=== PATIENT | male | born 1960 | race Caucasian/White ===

== ENCOUNTER → 2017-02-18 | Outpatient (CLI) | payer MEDICARE ==
[~2017-02-18] MED LIST: ALLO300T PO; AMLO5TAB2 PO; BUTA-177 PO; COLC0.6T37 PO; DEXA2TAB PO; ERGO500017 PO; GABA600T2 PO; GEMF600T3 PO; LISI30TA4 PO; MECL25TA4 PO; METH500T7 PO; METH750T87 PO; ONDA4TAB7 PO; OXYC-302 PO; OXYC5TAB3 PO; PRED20TA PO; PROP40TA PO; SULF1TAB24 PO; TRAM50TA2 PO; TRIA15CR3 TD
[2017-02-18 12:13] LABS: ASPARTATE AMINO TRANSFERASE 38 U/L (15-37); BLOOD UREA NITROGEN 10 mg/dL (7-18)
[2017-02-19 14:06] LABS: PSA SERIAL MONITOR 1.8 ng/mL (0.0-4.0)
== END | disposition home or self-care (01) ==
LOC: LAB 11:20
PROVIDERS: ATTEND Internal Medicine
DX: I10 Essential (primary) hypertension (principal); D75.1 Secondary polycythemia; G40.909 Epilepsy, unspecified, not intractable, without status epilepticus; G43.909 Migraine, unspecified, not intractable, without status migrainosus; M10.9 Gout, unspecified
CPT/HCPCS: 36415; 80053; 84153; 84550; 85025; G0103

== ENCOUNTER 2017-10-14 19:33 | Inpatient (IN) | payer MEDICARE ==
[~2017-10-14] VITALS: Ht 175.3 cm; Wt 91.4 kg
[2017-10-14 20:14] LABS: BASOPHILS # (AUTO) 0.05 x10^3/uL (0-0.1); BASOPHILS % (AUTO) 0 % (0-1); EOSINOPHILS # (AUTO) 0.47 x10^3/uL (0-0.4); EOSINOPHILS % (AUTO) 4 % (1-7); LYMPHOCYTES # (AUTO) 1.68 x10^3/uL (1-3.4); LYMPHOCYTES % (AUTO) 13 % (22-44); MD NO; MEAN CORPUSCULAR HEMOGLOBIN 33.5 pg (27.5-34.5); MEAN CORPUSCULAR HGB CONC 34.4 g/dL (33.2-36.2); MEAN CORPUSCULAR VOLUME 97.3 fL (81-97); MEAN PLATELET VOLUME 7.3 fL (7.4-10.4); MONOCYTES # (AUTO) 0.87 x10^3/uL (0.2-0.8); MONOCYTES % (AUTO) 7 % (2-9); NEUTROPHILS # (AUTO) 9.53 x10^3/uL (1.8-6.8); NEUTROPHILS % (AUTO) 76 % (42-75); PLATELET COUNT 326 x10^3/uL (130-400); RED BLOOD COUNT 5.41 x10^6/uL (4.38-5.82); RED CELL DISTRIBUTION WIDTH 12.9 % (9.4-14.8)
[2017-10-14] MEDS ORDERED: ACETAMINOPHEN 325 MG TABLET PO ONE (21:00)
[2017-10-14] MEDS ORDERED: SODIUM CHLORIDE 0.9% 1,000ML IVBOLUS ONE (21:00)
[2017-10-14] MEDS ORDERED: SODIUM CHLORIDE FLUSH 10ML SYR IVF ONE (21:00)
[2017-10-14 21:16] LABS: HCT (SEDRATE) 62.5 % (39.2-51.8)
[2017-10-14 21:30] LABS: ALANINE AMINOTRANSFERASE 18 U/L (12-78); ALBUMIN 3.1 g/dL (3.4-5.0); ANION GAP 8 mmol/L (5-15); CALCIUM 8.8 mg/dL (8.5-10.1); CHLORIDE 102 mmol/L (98-107); CREATININE 1.21 mg/dL (0.7-1.3)
[2017-10-14 21:32] LABS: ALKALINE PHOSPHATASE 51 U/L (45-117); BILIRUBIN,TOTAL 1.2 mg/dL (0.2-1.0); TOTAL PROTEIN 7.6 g/dL (6.4-8.2); TROPONIN I < 0.015 ng/mL (0.000-0.045)
[2017-10-14] MEDS ORDERED: ACETAMINOPHEN 325 MG TABLET ONE (21:45)
[2017-10-14] MEDS ORDERED: AZITHROMYCIN 500 MG in SODIUM CHLORIDE 0.9% 250 ML IVPB ONE (22:30)
[2017-10-14] MEDS ORDERED: POTASSIUM CHLORIDE 20 MEQ TAB.ER.PRT PO ONE (22:30)
[2017-10-14] MEDS ORDERED: CEFTRIAXONE PMX 1GM/50ML 50 ML IVPB ONE (22:30)
[2017-10-14] MEDS ORDERED: CEFTRIAXONE PMX 1GM/50ML 50 ML ONE (22:46)
[2017-10-14] MEDS ORDERED: POTASSIUM CHLORIDE 20 MEQ TAB.ER.PRT ONE (22:46)
[2017-10-14] MEDS ORDERED: OMNIPAQUE 350 MG/ML, 100ML BOTTLE ONE (23:35)
[2017-10-15] MEDS ORDERED: hydrALAzine 20 MG/ML, 1ML IVPush PRN (01:30)
[2017-10-15] MEDS ORDERED: HYDROcodone/APAP 5/325 TABLET PO PRN (01:30)
[2017-10-15] MEDS: ENOXAPARIN 40 MG/0.4 ML SQ SCH (01:30)
[2017-10-15] MEDS ORDERED: DOCUSATE 100 MG CAPSULE PO PRN (01:30)
[2017-10-15] MEDS ORDERED: ONDANSETRON ODT 4 MG PO PRN (01:30)
[2017-10-15 03:10] LABS: TROPONIN I < 0.015 ng/mL (0.000-0.045)
[2017-10-15 09:28] VITALS: BP 126/85
[2017-10-15] MEDS ORDERED: FLU VACC QS2017-18 (36MOS+) UP/PF 0.5 ML IM-VACC ONE (10:00)
[2017-10-15] MEDS ORDERED: PNEUMOCOCCAL 23 VACCINE IM-VACC ONE (10:00)
[2017-10-15 10:17] LABS: TROPONIN I < 0.015 ng/mL (0.000-0.045)
[2017-10-15 13:14] LABS: AMPHETAMINE SCREEN, URINE Negative (Negative); BARBITURATE SCREEN, URINE Negative (Negative); BENZODIAZEPINE SCREEN, URINE Negative (Negative); CANNABINOID SCREEN, URINE Negative (Negative); COCAINE SCREEN, URINE Negative (Negative); METHADONE SCREEN, URINE Negative (Negative); OPIATE SCREEN, URINE Positive (Negative)
[2017-10-15 14:54] VITALS: BP 126/83
[2017-10-15 19:30] VITALS: BP 122/79
[2017-10-15] MEDS ORDERED: CEFTRIAXONE 1,000 MG in DEXTROSE 5% 50 ML IVPB SCH (22:00)
[2017-10-15] MEDS ORDERED: AZITHROMYCIN 500 MG in SODIUM CHLORIDE 0.9% 250 ML IV SCH (22:30)
[2017-10-16 00:27] VITALS: BP 129/79
[2017-10-16] MEDS: ENOXAPARIN 40 MG/0.4 ML SQ SCH (06:00)
[2017-10-16 06:25] LABS: BASOPHILS # (AUTO) 0.04 x10^3/uL (0-0.1); BASOPHILS % (AUTO) 0 % (0-1); EOSINOPHILS # (AUTO) 0.02 x10^3/uL (0-0.4); EOSINOPHILS % (AUTO) 0 % (1-7); LYMPHOCYTES # (AUTO) 1.68 x10^3/uL (1-3.4); LYMPHOCYTES % (AUTO) 18 % (22-44); MD NO; MEAN CORPUSCULAR HEMOGLOBIN 33.6 pg (27.5-34.5); MEAN CORPUSCULAR HGB CONC 34.6 g/dL (33.2-36.2); MEAN CORPUSCULAR VOLUME 97.3 fL (81-97); MEAN PLATELET VOLUME 7.1 fL (7.4-10.4); MONOCYTES # (AUTO) 0.62 x10^3/uL (0.2-0.8); MONOCYTES % (AUTO) 7 % (2-9); NEUTROPHILS # (AUTO) 7.11 x10^3/uL (1.8-6.8); NEUTROPHILS % (AUTO) 75 % (42-75); PLATELET COUNT 295 x10^3/uL (130-400); RED BLOOD COUNT 4.44 x10^6/uL (4.38-5.82); RED CELL DISTRIBUTION WIDTH 13.1 % (9.4-14.8)
[2017-10-16 06:31] LABS: ANION GAP 10 mmol/L (5-15); CALCIUM 8.1 mg/dL (8.5-10.1); CHLORIDE 109 mmol/L (98-107); CREATININE 1.11 mg/dL (0.7-1.3)
[2017-10-16] MEDS ORDERED: AMOX1TAB64 PO (07:52)
[2017-10-16 08:06] VITALS: BP 128/82
== END 2017-10-16 11:30 | disposition home or self-care (01) | DRG 872 ==
LOC: ED 23:40 → EDIP 10-15 01:10 → 5SO 10-15 09:24 → 3NW 10-15 14:59 → DCLOUNGE 10-16 11:15
PROVIDERS: ADMIT Hospitalist; ATTEND Hospitalist
DX: A41.9 Sepsis, unspecified organism (principal); I11.9 Hypertensive heart disease without heart failure; I69.354 Hemiplegia and hemiparesis following cerebral infarction affecting left non-dominant side; L03.113 Cellulitis of right upper limb; E87.6 Hypokalemia; M10.9 Gout, unspecified; J20.9 Acute bronchitis, unspecified; J45.909 Unspecified asthma, uncomplicated; M19.90 Unspecified osteoarthritis, unspecified site; M70.22 Olecranon bursitis, left elbow; R65.20 Severe sepsis without septic shock; W57.XXXA Bitten or stung by nonvenomous insect and other nonvenomous arthropods, initial encounter; Y93.89 Activity, other specified; Y92.89 Other specified places as the place of occurrence of the external cause; Z82.49 Family history of ischemic heart disease and other diseases of the circulatory system; Z87.11 Personal history of peptic ulcer disease; Z86.14 Personal history of Methicillin resistant Staphylococcus aureus infection; Y99.8 Other external cause status; Z86.19 Personal history of other infectious and parasitic diseases; Z90.49 Acquired absence of other specified parts of digestive tract; Z79.899 Other long term (current) drug therapy; Z79.1 Long term (current) use of non-steroidal anti-inflammatories (NSAID)
CPT/HCPCS: 36415; 71045; 71275; 80048; 80053; 80307; 83605; 84145; 84484; 84550; 85025; 85651; 87040; 90686; 90732; 93005; 96365; 96366; 96368; 96372; J0456; J0696; J1650; Q9967; J7030; J7050; J7512

== ENCOUNTER → 2017-11-13 | Outpatient (CLI) | payer MEDICARE ==
[~2017-11-13] MED LIST changes: +AMOX1TAB64 PO
[2017-11-13 10:11] LABS: BASOPHILS # (AUTO) 0.03 x10^3/uL (0-0.1); BASOPHILS % (AUTO) 1 % (0-1); EOSINOPHILS # (AUTO) 0.25 x10^3/uL (0-0.4); EOSINOPHILS % (AUTO) 5 % (1-7); LYMPHOCYTES # (AUTO) 1.61 x10^3/uL (1-3.4); LYMPHOCYTES % (AUTO) 29 % (22-44); MD NO; MEAN CORPUSCULAR HEMOGLOBIN 32.9 pg (27.5-34.5); MEAN CORPUSCULAR HGB CONC 34.7 g/dL (33.2-36.2); MEAN PLATELET VOLUME 7.1 fL (7.4-10.4); MONOCYTES # (AUTO) 0.51 x10^3/uL (0.2-0.8); MONOCYTES % (AUTO) 9 % (2-9); NEUTROPHILS # (AUTO) 3.13 x10^3/uL (1.8-6.8); NEUTROPHILS % (AUTO) 57 % (42-75); PLATELET COUNT 222 x10^3/uL (130-400); RED BLOOD COUNT 5.39 x10^6/uL (4.38-5.82); RED CELL DISTRIBUTION WIDTH 13.7 % (9.4-14.8)
[2017-11-13 10:21] LABS: MICROSCOPIC AUTO
[2017-11-13 10:23] LABS: ALANINE AMINOTRANSFERASE 37 U/L (12-78); ALBUMIN 3.7 g/dL (3.4-5.0); ANION GAP 6 mmol/L (5-15); CALCIUM 8.9 mg/dL (8.5-10.1); CHLORIDE 107 mmol/L (98-107); CREATININE 1.15 mg/dL (0.7-1.3)
[2017-11-13 10:26] LABS: ALKALINE PHOSPHATASE 47 U/L (45-117); BILIRUBIN,TOTAL 1.1 mg/dL (0.2-1.0); CHOL/HDL RATIO 5.3; CHOLESTEROL, TOTAL 181 mg/dL (140-239); HDL CHOL % 19 % (26-37); HDL CHOLESTEROL (DIRECT) 34 mg/dL (40-60); LDL CHOLESTEROL,CALCULATED 90 mg/dL (54-169); LDL/HDL RATIO 2.6 (0.5-3.0); TOTAL PROTEIN 7.5 g/dL (6.4-8.2); TRIGLYCERIDES 284 mg/dL (50-200); VLDL CHOLESTEROL 57 mg/dL (0-25)
== END ==
LOC: LAB 09:53
PROVIDERS: ATTEND Internal Medicine
DX: I10 Essential (primary) hypertension (principal); G40.909 Epilepsy, unspecified, not intractable, without status epilepticus; G43.909 Migraine, unspecified, not intractable, without status migrainosus; J30.2 Other seasonal allergic rhinitis; D75.1 Secondary polycythemia
CPT/HCPCS: 36415; 80053; 80061; 81001; 84550; 85025; 86803

== ENCOUNTER → 2018-05-15 | Outpatient (CLI) | payer MEDICARE ==
[~2018-05-15] MED LIST changes: -AMLO5TAB2 PO; +AMLO5TAB7 PO; +AMOX1TAB12 PO; +ASPI-650 PO; +ATOR40TA78 PO; -GEMF600T3 PO; +GEMF600T4 PO; +HEPA50002 SQ; +LISI-167 PO
[2018-05-15 10:26] LABS: ALANINE AMINOTRANSFERASE 39 U/L (12-78); ALBUMIN 3.7 g/dL (3.4-5.0); ANION GAP 8 mmol/L (5-15); CALCIUM 9.3 mg/dL (8.5-10.1); CHLORIDE 103 mmol/L (98-107)
[2018-05-15 10:28] LABS: ALKALINE PHOSPHATASE 47 U/L (45-117); BILIRUBIN,TOTAL 2.5 mg/dL (0.2-1.0); CHOL/HDL RATIO 4.2; CHOLESTEROL, TOTAL 148 mg/dL (140-239); CREATININE 1.29 mg/dL (0.7-1.3); HDL CHOL % 24 % (26-37); HDL CHOLESTEROL (DIRECT) 35 mg/dL (40-60); LDL CHOLESTEROL,CALCULATED 56 mg/dL (54-169); LDL/HDL RATIO 1.6 (0.5-3.0); TOTAL PROTEIN 7.8 g/dL (6.4-8.2); TRIGLYCERIDES 284 mg/dL (50-200); VLDL CHOLESTEROL 57 mg/dL (0-25)
[2018-05-15 10:32] LABS: HEMOGLOBIN A1C 5.3 % (4.2-6.3)
== END | disposition home or self-care (01) ==
LOC: LAB 09:54
PROVIDERS: ATTEND Internal Medicine
DX: Z12.5 Encounter for screening for malignant neoplasm of prostate (principal); I10 Essential (primary) hypertension; E78.2 Mixed hyperlipidemia; M10.9 Gout, unspecified; G43.909 Migraine, unspecified, not intractable, without status migrainosus; R73.01 Impaired fasting glucose
CPT/HCPCS: 36415; 80053; 80061; 83036; 84550; G0103; 84153

== ENCOUNTER 2018-09-06 12:12 | Inpatient (IN) | payer MEDICARE ==
[~2018-09-06] VITALS: Ht 172.7 cm; Wt 89.4 kg
[~2018-09-06 12:12] MED LIST changes: +AMLO-150 PO; -AMLO5TAB7 PO; -GABA600T2 PO; +GABA600T7 PO; -GEMF600T4 PO; +GEMF600T8 PO
[2018-09-06] MEDS ORDERED: MORPHINE SULFATE 4 MG/ML, 1ML ONE ×2 (12:42→13:48)
[2018-09-06 12:55] LABS: BASOPHILS # (AUTO) 0.07 x10^3/uL (0-0.1); BASOPHILS % (AUTO) 1 % (0-1); EOSINOPHILS # (AUTO) 0.12 x10^3/uL (0-0.4); EOSINOPHILS % (AUTO) 1 % (1-7); LYMPHOCYTES # (AUTO) 1.49 x10^3/uL (1-3.4); LYMPHOCYTES % (AUTO) 16 % (22-44); MD NO; MEAN CORPUSCULAR HEMOGLOBIN 34.2 pg (27.5-34.5); MEAN CORPUSCULAR HGB CONC 34.7 g/dL (33.2-36.2); MEAN CORPUSCULAR VOLUME 98.5 fL (81-97); MEAN PLATELET VOLUME 7.4 fL (7.4-10.4); MONOCYTES % (AUTO) 10 % (2-9); NEUTROPHILS # (AUTO) 6.88 x10^3/uL (1.8-6.8); NEUTROPHILS % (AUTO) 73 % (42-75); PLATELET COUNT 301 x10^3/uL (130-400); RED BLOOD COUNT 5.08 x10^6/uL (4.38-5.82); RED CELL DISTRIBUTION WIDTH 13.2 % (9.4-14.8)
[2018-09-06] MEDS ORDERED: SODIUM CHLORIDE FLUSH 10ML SYR IVF ONE (13:00)
[2018-09-06] MEDS: MORPHINE SULFATE 4 MG/ML, 1ML IVPush PRN ×2 (13:00→13:51)
[2018-09-06 13:03] LABS: INTERNATIONAL NORMALIZED RATIO 1.04 (0.93-1.1)
[2018-09-06 13:04] LABS: ALANINE AMINOTRANSFERASE 24 U/L (12-78); ALBUMIN 3.3 g/dL (3.4-5.0); ANION GAP 10 mmol/L (5-15); CALCIUM 9.6 mg/dL (8.5-10.1); CHLORIDE 102 mmol/L (98-107); CREATININE 1.37 mg/dL (0.7-1.3)
[2018-09-06 13:07] LABS: ALKALINE PHOSPHATASE 46 U/L (45-117); TOTAL PROTEIN 7.8 g/dL (6.4-8.2)
--- NOTE | 2018-09-06 13:21 | NUR ---
FIRST CONTACT WITH PT. PT C/O LEFT FOOT PAIN/SWELLING/DISCOLORATION X 6DAYS. NO TRAUMA NOTED ON LEFT FOOT. PT AOX4. RESPS EVEN AND UNLABORED. PT DENIES N/V/D AT THIS TIME. PT'S FAMILY AT BEDSIDE. BILATERAL DORSALIS PEDAL PULSE +2. BP/SPO2 MONITORS IN PLACE. CALL LIGHT WITHIN REACH.
--- NOTE | 2018-09-06 13:45 | NUR ---
pt's pain level is the same and rate 7/10 at this time. [employer] law notified.
--- NOTE | 2018-09-06 13:53 | NUR ---
pt medicated per emar for pain. pt tolerated well. pt aox4. resps even and unlabored.
[2018-09-06] MEDS ORDERED: MORPHINE SULFATE 4 MG/ML, 1ML IVPush PRN (14:00)
[2018-09-06 14:15] LABS: HCT (SEDRATE) 50.1 % (39.2-51.8)
[2018-09-06] MEDS ORDERED: VANCOMYCIN 1,900 MG in SODIUM CHLORIDE 0.9% 250 ML IV ONE (14:30)
[2018-09-06] MEDS ORDERED: VANCOMYCIN PER PHARMACY MC PRN (14:30)
--- NOTE | 2018-09-06 14:51 | NUR ---
REPORT GIVEN TO RECEIVING RN CHRISTY. DAMIAN NOT RECEIVED YET FROM PHARMACY, BLOOD CX X 2 TO BE DONE BEFORE RECEIVING ABX. RECEIVING RN AWARE. PT AWAITING TRANSPORT TO ROOM 457
--- NOTE | 2018-09-06 14:52 | NUR ---
pt reports pain level 5/10 at this time. pt a&o, resps even and unlabored. pt updated with POC.
--- NOTE | 2018-09-06 15:03 | NUR ---
vanco gtt started after blood cx drawn x 2.
[2018-09-06 15:31] VITALS: BP 117/79
[2018-09-06] MEDS ORDERED: ONDANSETRON 2MG/ML, 2ML IVPush PRN (16:00)
[2018-09-06] MEDS ORDERED: morphine SULFATE 10 MG/ML, 1ML IVPush PRN (16:00)
[2018-09-06] MEDS ORDERED: ACETAMINOPHEN 325 MG TABLET PO PRN (16:00)
[2018-09-06] MEDS ORDERED: hydrALAzine 20 MG/ML, 1ML IVPush PRN (16:00)
[2018-09-06] MEDS ORDERED: TEMAZEPAM 15 MG CAPSULE PO PRN (16:00)
[2018-09-06] MEDS: HYDROcodone/APAP 5/325 TABLET PO PRN (16:37)
[2018-09-06] MEDS: CEFTAROLINE 600 MG in SODIUM CHLORIDE 0.9% 100 ML IV SCH (17:23)
[2018-09-06] MEDS: LACTATED RINGERS 1,000 ML IV SCH (17:23)
[2018-09-06 17:42] LABS: THYROID STIMULATING HORMONE 1.63 mIU/L (0.358-3.740)
[2018-09-06 17:44] LABS: HEMOGLOBIN A1C 5.2 % (4.2-6.3)
[2018-09-06 20:08] VITALS: BP 119/77
[2018-09-07 00:51] VITALS: BP 156/94
[2018-09-07] MEDS: HYDROcodone/APAP 5/325 TABLET PO PRN ×4 (03:27→21:11)
[2018-09-07] MEDS: CEFTAROLINE 600 MG in SODIUM CHLORIDE 0.9% 100 ML IV SCH ×2 (03:27→15:42)
[2018-09-07 05:36] LABS: BASOPHILS # (AUTO) 0.03 x10^3/uL (0-0.1); BASOPHILS % (AUTO) 0 % (0-1); EOSINOPHILS # (AUTO) 0.19 x10^3/uL (0-0.4); EOSINOPHILS % (AUTO) 2 % (1-7); LYMPHOCYTES # (AUTO) 1.24 x10^3/uL (1-3.4); LYMPHOCYTES % (AUTO) 14 % (22-44); MD NO; MEAN CORPUSCULAR HEMOGLOBIN 34.3 pg (27.5-34.5); MEAN CORPUSCULAR HGB CONC 34.8 g/dL (33.2-36.2); MEAN CORPUSCULAR VOLUME 98.7 fL (81-97); MEAN PLATELET VOLUME 7.6 fL (7.4-10.4); MONOCYTES # (AUTO) 0.89 x10^3/uL (0.2-0.8); MONOCYTES % (AUTO) 10 % (2-9); NEUTROPHILS # (AUTO) 6.45 x10^3/uL (1.8-6.8); NEUTROPHILS % (AUTO) 73 % (42-75); PLATELET COUNT 282 x10^3/uL (130-400); RED BLOOD COUNT 4.44 x10^6/uL (4.38-5.82)
[2018-09-07 05:42] LABS: ALBUMIN 2.7 g/dL (3.4-5.0); CHLORIDE 102 mmol/L (98-107)
[2018-09-07 05:57] LABS: ALANINE AMINOTRANSFERASE 20 U/L (12-78); ALKALINE PHOSPHATASE 36 U/L (45-117); ANION GAP 11 mmol/L (5-15); BILIRUBIN,TOTAL 1.8 mg/dL (0.2-1.0); CALCIUM 8.6 mg/dL (8.5-10.1); CHOL/HDL RATIO 5.3; CHOLESTEROL, TOTAL 143 mg/dL (140-239); HDL CHOL % 19 % (26-37); HDL CHOLESTEROL (DIRECT) 27 mg/dL (40-60); LDL CHOLESTEROL,CALCULATED 86 mg/dL (54-169); LDL/HDL RATIO 3.2 (0.5-3.0); TOTAL PROTEIN 6.5 g/dL (6.4-8.2); TRIGLYCERIDES 148 mg/dL (50-200); VLDL CHOLESTEROL 30 mg/dL (0-25)
[2018-09-07] MEDS: LACTATED RINGERS 1,000 ML IV SCH (08:18)
[2018-09-07] MEDS: ALLOPURINOL 300 MG TABLET PO SCH (08:18)
[2018-09-07] MEDS: ENOXAPARIN 40 MG/0.4 ML SQ SCH (08:18)
[2018-09-07 08:30] VITALS: BP 154/75
[2018-09-07 13:45] VITALS: BP 150/75
[2018-09-07] MEDS ORDERED: POTASSIUM CHLORIDE 20 MEQ TAB.ER.PRT PO ONE (15:30)
[2018-09-07 18:35] VITALS: BP 156/95
[2018-09-07] MEDS: SIMVASTATIN 20 MG TABLET PO SCH (21:00)
[2018-09-08] MEDS: HYDROcodone/APAP 5/325 TABLET PO PRN ×5 (01:08→21:48)
[2018-09-08 01:18] VITALS: BP 150/84
[2018-09-08] MEDS: CEFTAROLINE 600 MG in SODIUM CHLORIDE 0.9% 100 ML IV SCH ×2 (03:30→17:00)
[2018-09-08 05:47] LABS: ANION GAP 6 mmol/L (5-15); CALCIUM 8.9 mg/dL (8.5-10.1); CHLORIDE 104 mmol/L (98-107); CREATININE 1.05 mg/dL (0.7-1.3)
[2018-09-08 07:20] VITALS: BP 136/58
[2018-09-08] MEDS: ALLOPURINOL 300 MG TABLET PO SCH (08:10)
[2018-09-08] MEDS: ENOXAPARIN 40 MG/0.4 ML SQ SCH (08:10)
[2018-09-08 13:40] VITALS: BP 112/81
[2018-09-08] MEDS ORDERED: LIDOCAINE-MPF 1%, 5ML ONE (15:25)
[2018-09-08 18:54] VITALS: BP 115/77
[2018-09-08] MEDS: SIMVASTATIN 20 MG TABLET PO SCH (21:48)
[2018-09-09 03:08] VITALS: BP 138/83
[2018-09-09] MEDS: CEFTAROLINE 600 MG in SODIUM CHLORIDE 0.9% 100 ML IV SCH ×2 (03:37→15:59)
[2018-09-09 06:41] VITALS: BP 125/90
[2018-09-09] MEDS: ENOXAPARIN 40 MG/0.4 ML SQ SCH (08:47)
[2018-09-09] MEDS: ALLOPURINOL 300 MG TABLET PO SCH (08:48)
[2018-09-09 13:14] VITALS: BP 144/81
[2018-09-09] MEDS: HYDROcodone/APAP 5/325 TABLET PO PRN ×2 (15:08→19:35)
[2018-09-09] MEDS: INDOMETHACIN 50 MG CAPSULE PO SCH ×2 (17:15→20:03)
[2018-09-09 18:50] VITALS: BP 122/86
[2018-09-09] MEDS: SIMVASTATIN 20 MG TABLET PO SCH (20:04)
[2018-09-10 02:56] VITALS: BP 114/81
[2018-09-10] MEDS: CEFTAROLINE 600 MG in SODIUM CHLORIDE 0.9% 100 ML IV SCH ×2 (03:49→16:14)
[2018-09-10 05:39] LABS: HCT (SEDRATE) 40.8 % (39.2-51.8)
[2018-09-10 05:41] LABS: BASOPHILS # (AUTO) 0.02 x10^3/uL (0-0.1); BASOPHILS % (AUTO) 0 % (0-1); EOSINOPHILS # (AUTO) 0.19 x10^3/uL (0-0.4); EOSINOPHILS % (AUTO) 3 % (1-7); LYMPHOCYTES # (AUTO) 1.09 x10^3/uL (1-3.4); LYMPHOCYTES % (AUTO) 19 % (22-44); MD NO; MEAN CORPUSCULAR HEMOGLOBIN 33.7 pg (27.5-34.5); MEAN CORPUSCULAR HGB CONC 34.7 g/dL (33.2-36.2); MEAN CORPUSCULAR VOLUME 97.2 fL (81-97); MEAN PLATELET VOLUME 7.3 fL (7.4-10.4); MONOCYTES # (AUTO) 0.65 x10^3/uL (0.2-0.8); MONOCYTES % (AUTO) 11 % (2-9); NEUTROPHILS # (AUTO) 3.76 x10^3/uL (1.8-6.8); NEUTROPHILS % (AUTO) 66 % (42-75); PLATELET COUNT 321 x10^3/uL (130-400); RED BLOOD COUNT 4.21 x10^6/uL (4.38-5.82); RED CELL DISTRIBUTION WIDTH 12.9 % (9.4-14.8)
[2018-09-10 05:49] LABS: ANION GAP 5 mmol/L (5-15); CHLORIDE 104 mmol/L (98-107); CREATININE 1.31 mg/dL (0.7-1.3)
[2018-09-10 06:44] VITALS: BP 111/71
[2018-09-10] MEDS: ENOXAPARIN 40 MG/0.4 ML SQ SCH (08:29)
[2018-09-10] MEDS: INDOMETHACIN 50 MG CAPSULE PO SCH ×3 (08:29→20:09)
[2018-09-10] MEDS: ALLOPURINOL 300 MG TABLET PO SCH (08:29)
[2018-09-10 14:00] VITALS: BP 113/81
[2018-09-10 18:54] VITALS: BP 152/89
[2018-09-10] MEDS: SIMVASTATIN 20 MG TABLET PO SCH (20:09)
[2018-09-11 02:46] VITALS: BP 125/77
[2018-09-11] MEDS: CEFTAROLINE 600 MG in SODIUM CHLORIDE 0.9% 100 ML IV SCH (03:36)
[2018-09-11] MEDS: ENOXAPARIN 40 MG/0.4 ML SQ SCH (08:41)
[2018-09-11] MEDS: INDOMETHACIN 50 MG CAPSULE PO SCH (08:41)
[2018-09-11] MEDS: ALLOPURINOL 300 MG TABLET PO SCH (08:41)
[2018-09-11 09:01] VITALS: BP 127/87
[2018-09-11 13:44] VITALS: BP 153/84
[2018-09-11] MEDS ORDERED: HYDR-3240 PO (14:31)
[2018-09-11] MEDS ORDERED: LACT1TAB13 PO (14:31)
[2018-09-11] MEDS ORDERED: METO25TA35 PO (14:31)
[2018-09-11] MEDS ORDERED: PRED5TAB PO (14:31)
[2018-09-11] MEDS ORDERED: CEPH-368 PO ×3 (14:31→15:04)
[2018-09-11] MEDS ORDERED: TRAM50TA2 PO (14:31)
[2018-09-11] MEDS ORDERED: SIMV10TA PO (14:33)
[2018-09-11] MEDS ORDERED: POLY17PO5 PO (14:37)
== END 2018-09-11 15:12 | disposition home health service (06) | DRG 602 ==
LOC: ED 13:17 → EDIP 14:20 → 4NOR 15:30 → DCLOUNGE 09-11 15:02
PROVIDERS: ADMIT Hospitalist; ATTEND Internal Medicine
PROC: 0S9D3ZZ Drainage of Left Knee Joint, Percutaneous Approach (ICD-10-PCS; principal; 2018-09-08)
DX: L03.116 Cellulitis of left lower limb (principal); N17.0 Acute kidney failure with tubular necrosis; F10.20 Alcohol dependence, uncomplicated; M70.42 Prepatellar bursitis, left knee; I10 Essential (primary) hypertension; D75.89 Other specified diseases of blood and blood-forming organs; E11.9 Type 2 diabetes mellitus without complications; E83.39 Other disorders of phosphorus metabolism; M10.9 Gout, unspecified; E78.5 Hyperlipidemia, unspecified; Z82.49 Family history of ischemic heart disease and other diseases of the circulatory system; Z90.49 Acquired absence of other specified parts of digestive tract
CPT/HCPCS: 20611; 36415; 80048; 80053; 80061; 83036; 83735; 84100; 84443; 84550; 85025; 85610; 85651; 85730; 85810; 86140; 87040; 87070; 87075; 87205; 89050; 89060; 93306; 93922; G0378; J0712; J1650; J3370; J2270; J7050; J7120

== ENCOUNTER → 2018-11-11 | Outpatient (CLI) | payer MEDICARE ==
[~2018-11-11] MED LIST changes: +CEPH-368 PO; +HYDR-3240 PO; +LACT1TAB13 PO; +METO25TA35 PO; +POLY17PO5 PO; +PRED5TAB PO; +SIMV10TA PO
[2018-11-11 09:30] LABS: ALBUMIN 3.8 g/dL (3.4-5.0); ANION GAP 7 mmol/L (5-15); CALCIUM 8.9 mg/dL (8.5-10.1); CHLORIDE 105 mmol/L (98-107)
[2018-11-11 09:33] LABS: ALANINE AMINOTRANSFERASE 73 U/L (12-78); ALKALINE PHOSPHATASE 51 U/L (45-117); BILIRUBIN,TOTAL 1.5 mg/dL (0.2-1.0); CHOL/HDL RATIO 5.1; CHOLESTEROL, TOTAL 173 mg/dL (140-239); CREATININE 1.18 mg/dL (0.7-1.3); HDL CHOL % 20 % (26-37); HDL CHOLESTEROL (DIRECT) 34 mg/dL (40-60); LDL CHOLESTEROL,CALCULATED 61 mg/dL (54-169); LDL/HDL RATIO 1.8 (0.5-3.0); TRIGLYCERIDES 390 mg/dL (50-200); VLDL CHOLESTEROL 78 mg/dL (0-25)
== END | disposition home or self-care (01) ==
LOC: LAB 09:07
PROVIDERS: ATTEND Internal Medicine
DX: E78.2 Mixed hyperlipidemia (principal); G45.9 Transient cerebral ischemic attack, unspecified; I10 Essential (primary) hypertension; M10.9 Gout, unspecified; R73.01 Impaired fasting glucose; R74.0 Nonspecific elevation of levels of transaminase and lactic acid dehydrogenase [LDH]; R94.4 Abnormal results of kidney function studies; Z88.1 Allergy status to other antibiotic agents; Z88.8 Allergy status to other drugs, medicaments and biological substances
CPT/HCPCS: 36415; 80053; 80061; 84550

== ENCOUNTER 2019-01-14 09:30 | Emergency (ER) | payer MEDICARE ==
[~2019-01-14] VITALS: Ht 175.3 cm; Wt 100.0 kg
[~2019-01-14 09:30] MED LIST changes: -TRIA15CR3 TD; +TRIA15CR61 TD
[2019-01-14 10:11] LABS: BASOPHILS # (AUTO) 0.07 x10^3/uL (0-0.1); BASOPHILS % (AUTO) 1 % (0-1); EOSINOPHILS # (AUTO) 0.19 x10^3/uL (0-0.4); EOSINOPHILS % (AUTO) 2 % (1-7); LYMPHOCYTES # (AUTO) 1.95 x10^3/uL (1-3.4); LYMPHOCYTES % (AUTO) 18 % (22-44); MD NO; MEAN CORPUSCULAR HEMOGLOBIN 32.5 pg (27.5-34.5); MEAN CORPUSCULAR HGB CONC 33.1 g/dL (33.2-36.2); MEAN PLATELET VOLUME 7.2 fL (7.4-10.4); MONOCYTES # (AUTO) 1.17 x10^3/uL (0.2-0.8); MONOCYTES % (AUTO) 11 % (2-9); NEUTROPHILS # (AUTO) 7.43 x10^3/uL (1.8-6.8); NEUTROPHILS % (AUTO) 69 % (42-75); PLATELET COUNT 307 x10^3/uL (130-400); RED BLOOD COUNT 5.59 x10^6/uL (4.38-5.82); RED CELL DISTRIBUTION WIDTH 13.6 % (9.4-14.8)
[2019-01-14 10:22] LABS: ANION GAP 8 mmol/L (5-15); CALCIUM 9.8 mg/dL (8.5-10.1); CHLORIDE 103 mmol/L (98-107)
[2019-01-14 10:23] LABS: CREATININE 1.26 mg/dL (0.7-1.3)
[2019-01-14] MEDS ORDERED: KETOROLAC 30 MG/1 ML ONE (10:25)
[2019-01-14] MEDS ORDERED: KETOROLAC 30 MG/1 ML IM ONE (10:30)
--- NOTE | 2019-01-14 11:24 | NUR ---
Patient/Caregiver given discharge instructions and they have confirmed that they understand the instructions. Patient assisted to DC desk via wheelchair, family to drive patient home.
== END 2019-01-14 11:26 | disposition home or self-care (01) ==
LOC: ED 11:25
DX: M10.022 Idiopathic gout, left elbow (principal); M10.072 Idiopathic gout, left ankle and foot; M10.071 Idiopathic gout, right ankle and foot; I10 Essential (primary) hypertension; Z86.73 Personal history of transient ischemic attack (TIA), and cerebral infarction without residual deficits
CPT/HCPCS: 36415; 73080; 80048; 84550; 85025; 96372; 99284; J1885

== ENCOUNTER 2019-11-11 09:27 | Outpatient (CLI) | payer MEDICARE ==
[~2019-11-11 09:27] MED LIST changes: +MECL-101 PO; -MECL25TA4 PO
[2019-11-11 13:09] LABS: CHLORIDE 107 mmol/L (98-107)
[2019-11-11 13:16] LABS: ALANINE AMINOTRANSFERASE 26 U/L (12-78); ALBUMIN 3.5 g/dL (3.4-5.0); ALKALINE PHOSPHATASE 43 U/L (45-117); ANION GAP 6 mmol/L (5-15); BILIRUBIN,TOTAL 0.6 mg/dL (0.2-1.0); CALCIUM 9.3 mg/dL (8.5-10.1); CHOL/HDL RATIO 5.7; CHOLESTEROL, TOTAL 159 mg/dL (140-239); CREATININE 1.24 mg/dL (0.7-1.3); HDL CHOL % 18 % (26-37); HDL CHOLESTEROL (DIRECT) 28 mg/dL (40-60); LDL CHOLESTEROL,CALCULATED 99 mg/dL (54-169); LDL/HDL RATIO 3.5 (0.5-3.0); TOTAL PROTEIN 7.5 g/dL (6.4-8.2); TRIGLYCERIDES 158 mg/dL (50-200); VLDL CHOLESTEROL 32 mg/dL (0-25)
== END 2019-11-11 23:59 | disposition home or self-care (01) ==
LOC: CFH 09:27
PROVIDERS: ATTEND Internal Medicine
DX: Z12.5 Encounter for screening for malignant neoplasm of prostate (principal); E78.2 Mixed hyperlipidemia; I10 Essential (primary) hypertension; M10.062 Idiopathic gout, left knee; R73.01 Impaired fasting glucose
CPT/HCPCS: 36415; 80053; 80061; 84153; 84550